=== PATIENT | female | born 1945 | race Caucasian/White ===

== ENCOUNTER 2022-02-26 13:52 | Emergency (ER) | payer MEDICARE, SELFPAY ==
[2022-02-26 13:57] VITALS: BP 108/45; PULSE 81; RESP 18; TEMP 36.4; O2SAT 94; BMI 39.7
[2022-02-26 14:00] VITALS: BP 122/59; PULSE 81; RESP 18; O2SAT 95
--- NOTE | 2022-02-26 14:29 | ED_ITS ---
HPI - General Adult General Chief complaint: Skin/Abscess/Foreign Body Stated complaint: Cellulitis Time Seen by Provider: 02/26/22 14:16 History of Present Illness HPI narrative: 77yo female patient with uncertain PMH, limited by patient knowledge and no records available for review, that presents to the ED after having been discharged from [facility] on 02/22 for bilateral LE cellulitis. The patient reports she was in her home and progressively weakening. Today, she lost her balance and fe ll onto her buttock. She denies hitting her head or having loss of consciousness. She denies blood thinners. In addition, the patient states that she has had poor PO intake. However, she denies fever, chills, or sweats. She denies nausea, vomiting, or abdominal pain. She reports 'routine' diarrhea with reported history of colitis. She reports worsening redness, swelling, and pain in her lower extremities. Prior to arrival, she reports taking Dilaudid which she states she is prescribed for chronic pain. She denies other evaluation or management prior to arrival. Related Data Home Medications Medication Instructions Recorded Confirmed budesonide 3 mg mg PO 02/26/22 capsule,delayed,extended release bupropion HCl 150 mg 24 hr tablet, mg PO 02/26/22 extended release buspirone 10 mg tablet mg 02/26/22 cephalexin 500 mg capsule mg 02/26/22 cetirizine 10 mg tablet mg 02/26/22 citalopram 40 mg tablet mg 02/26/22 colesevelam 625 mg tablet mg 02/26/22 cranberry fruit 450 mg tablet mg 02/26/22 (cranberry) gabapentin 300 mg capsule mg 02/26/22 hydroxyzine HCl 25 mg tablet mg 02/26/22 lisinopril 10 mg tablet mg 02/26/22 mirabegron 25 mg tablet,extended mg PO 02/26/22 release 24 hr (Myrbetriq) nystatin 100,000 unit/gram topical TOPICAL 02/26/22 powder pantoprazole 40 mg tablet,delayed mg PO 02/26/22 release ropinirole 1 mg tablet mg 02/26/22 trazodone 100 mg tablet mg 02/26/22 triamcinolone acetonide 0.1 % applic TOPICAL 02/26/22 topical cream Previous Rx's Medication Instructions Recorded sulfamethoxazole 800 1 tab PO BID #10 tab 02/26/22 mg-trimethoprim 160 mg tablet (Bactrim DS) Allergies Allergy/AdvReac Type Severity Reaction Status Date / Time No Known Drug Allergies Allergy Verified 02/26/22 14:02 Review of Systems Const: Reports: fatigue and malaise; Denies: fever or chills Cardio: Reports: swelling of feet/ankles, lightheadedness and leg pain with exertion; Denies: chest pain, palpitations or shortness of breath when lying down Resp: Denies: cough or pain on inspiration GI: Reports: diarrhea; Denies: abdominal pain, nausea, vomiting or blood in stool : Denies: painful urination, urinary frequency or urinary urgency Integ/Breast: Reports: redness; Denies: non-healing lesion Neuro: Reports: weakness in extremities and lack of coordination; Denies: numbness in extremities, dizziness, confusion or behavioral changes Psych: Reports: anxiety Endo: Reports: fatigue PFSH PFSH Social History Smoking Status: Unknown if ever smoked How often do you have a drink containing alcohol: never AUDIT-C Alcohol total score: 0 Non-prescribed substance use: denies use service: No Exam Const: Vital Signs, click to edit/add: Vital Signs - 24 hr 02/26/22 13:57 Temperature 97.5 F L Pulse Rate [Left P ulse Oximeter] 81 Respiratory Rate 18 Blood Pressure [Le ft Upper Arm] 108/45 L Pulse Oximetry 94 Documenting provider has reviewed patient's vital signs: yes (patient's blood pressure is taken at left forearm, per her request) Common normals: no apparent distress, oriented x3, no limitations, alert and well nourished General appearance: well developed, anxious and grossly edematous Nutritional appearance: obese Orientation/consciousness: Yes awake, Yes oriented to person, Yes oriented to place and Yes oriented to time HENMT: Common normals: normocephalic and hearing grossly normal bilaterally Head and scalp: normocephalic Eye: Common normals: PERRL and EOMs intact bilaterally Pupil: PERRL Neck & C-Spine: Common normals: full ROM, no lymphadenopathy and supple Cervical spine: cervical ROM normal; no cervical spine tenderness Lymph: Lymphatic: lymphedema (bilateral LE with +3 pitting edema) Resp: Common normals: normal respiratory effort, no retractions, no use of accessory muscles and clear to auscultation bilaterally Auscultation: clear to auscultation bilaterally Cardio: Common normals: regular rate, regular rhythm, S1 normal heart sound, S2 normal heart sound and no murmurs Rate: regular rate Rhythm: regular rhythm Heart sounds: S1 normal and S2 normal GI: Common normals: Normal to inspection, nondistended, normoactive bowel sounds present and soft to palpation Palpation: soft Back & Pelvis: Thoracic spine/upper back: pain with ROM (chronic) Lumbar spine/lower back: pain with ROM (chronic) Pelvis: no pain with anterior- posterior compression and no pain with lateral compression Extremity: General: edema (3+ pitting) and other findings (bilateral erythema, blanchable with palpation) Neuro: Common normals: oriented x3 and moves all extremities (with great effort, and causes pain with movement - baseline per patient) Sensorium/orientation: awake, alert, oriented to person, oriented to place and oriented to time Speech: speech normal Gait (neuro): unable to assess gait (due to patient reports of pain ) Sensory exam: sensation present Motor exam: strength 5/5 throughout, no pronator drift and tremor (with movement) Psych: Common normals: mental status grossly normal, thought process normal and speech normal Attitude: agitated (requesting pain medications on arrial) Activity/motor behavior: appropriate eye contact Speech: normal speech Thought process: normal thought process Thought content: normal thought content Insight: limited Judgement: limited Skin: Common normals: no rashes or lesions noted General skin exam: no rashes or lesions noted and erythema (bilateral, patieint reports right worse than previous; left improving) Course Course Hospital Course: 77yo female arrives after sustaining a fall at home secondary to progressive weakness after recent hospitalization for bilateral LE cellulitis. The patient reports increasing weakness and debility with worsening bilateral LE exam. The patient has been taking Keflex as previously prescribed and Dilaudid for pain medications. Her daughter reports that she has been having increasing loose bowel movements, the patient reports the bowel movements are about the same. The patient has not taken meds this am, as she fell upon awakening at 12-1pm. Reevaluation(s) Reevaluation #1: Patient reports improvement in pain after addition of Dilaudid and Gabapentin. The patient reports continued discomfort, but much improved. The patient's D- Dimer is noted to be elevated. The patient will be sent for CTA to ensure no PE. Reevaluation #2: Discussed findings and incidental results with patient and her daughter. Patient reports significant improvement in symptoms. Patient's vital signs have remained stable. The results were discussed, and the patient verbalized understanding. Reasons for follow-up or return were discussed. Time: 18:33 Vital Signs Vital signs: Initial Vital Signs Temperature 97.5 F L 02/26/22 13:57 Temperature Source Temporal Artery Scan 02/26/22 13:57 Pulse Rate 81 02/26/22 13:57 Respiratory Rate 18 02/26/22 13:57 Blood Pressure 108/45 L 02/26/22 13:57 Blood Pressure Mean 66 02/26/22 13:57 Blood Pressure Position Sitting 02/26/22 13:57 Pulse Oximetry 94 02/26/22 13:57 Oxygen Delivery Method 02/26/22 13:57 Vital Signs Temperature 97.5 F L 02/26/22 13:57 Pulse Rate 81 02/26/22 13:57 Respiratory Rate 18 02/26/22 13:57 Blood Pressure 108/45 L 02/26/22 13:57 Pulse Oximetry 94 02/26/22 13:57 Temperature 97.5 F L 02/26/22 13:57 Pulse Rate 81 02/26/22 13:57 Respiratory Rate 18 02/26/22 13:57 Blood Pressure 108/45 L 02/26/22 13:57 Pulse Oximetry 94 02/26/22 13:57 Medical Decision Making Lab Data Labs: Lab Results 02/26/22 02/26/22 02/26/22 Range/Units 14:26 14:45 14:45 WBC 10.96 (4.50-11.00) K/uL RBC 4.10 (4.00-5.20) m/uL Hgb 12.7 (12.0-16.0) gm/dL Hct 38.7 (33.0-51.0) % MCV 94 (80-100) fL MCH 31 (26-34) pg MCHC 33 (32-36) gm/dL RDW Coeff of Giulia 15.1 (11.5-15.5) % Plt Count 283 (140-440) K/uL Neut % (Auto) 71.7 (42.0-72.0) % Lymph % (Auto) 15.1 L (20-44) % Stevens % (Auto) 7.7 (0.0-11.0) % Eos % (Auto) 4.7 (0.0-7.0) % Baso % (Auto) 0.4 (0.0-3.0) % Neut # (Auto) 7.87 H (1.7-7.0) K/uL Lymph # (Auto) 1.70 (0.90-2.90) K/uL Stevens # (Auto) 0.80 (0.00-0.90) K/UL Eos # (Auto) 0.52 H (0.00-0.50) K/uL Baso # (Auto) 0.04 (0.00-0.30) K/uL Abs Immat Gran (auto) 0.04 (0.00-0.30) K/uL D-Dimer Quant (PE/DVT) 2.60 H (0.00-0.50) ug/ml Sodium (135-149) mmol/L Potassium (3.6-5.1) mmol/L Chloride (96-114) mmol/L Carbon Dioxide (20-32) mmol/L BUN (7-30) mg/dL Creatinine (0.5-1.5) mg/dL Estimated Creat Clear Estimated GFR ml/min Glucose (60-115) mg/dL Calcium (8.4-10.6) mg/dL Total Bilirubin (0.1-1.5) mg/dL AST (12-35) U/L ALT (4-35) U/L Alkaline Phosphatase (40-150) U/L NT-Pro-B Natriuret Pep (0-450) PG/mL Total Protein (6.0-8.3) g/dL Albumin (3.3-5.0) g/dL Procalcitonin (<0.50) ng/mL SARS-CoV-2 (PCR) Negative SARS-CoV-2 (Negative) Influenza Type A (PCR) Negative PCR FLU A (Negative) Influenza Type B (PCR) Negative PCR FLU B (Negative) 02/26/22 Range/Units 14:45 WBC (4.50-11.00) K/uL RBC (4.00-5.20) m/uL Hgb (12.0-16.0) gm/dL Hct (33.0-51.0) % MCV (80-100) fL MCH (26-34) pg MCHC (32-36) gm/dL RDW Coeff of Giulia (11.5-15.5) % Plt Count (140-440) K/uL Neut % (Auto) (42.0-72.0) % Lymph % (Auto) (20-44) % Stevens % (Auto) (0.0-11.0) % Eos % (Auto) (0.0-7.0) % Baso % (Auto) (0.0-3.0) % Neut # (Auto) (1.7-7.0) K/uL Lymph # (Auto) (0.90-2.90) K/uL Stevens # (Auto) (0.00-0.90) K/UL Eos # (Auto) (0.00-0.50) K/uL Baso # (Auto) (0.00-0.30) K/uL Abs Immat Gran (auto) (0.00-0.30) K/uL D-Dimer Quant (PE/DVT) (0.00-0.50) ug/ml Sodium 135 (135-149) mmol/L Potassium 4.5 (3.6-5.1) mmol/L Chloride 107 (96-114) mmol/L Carbon Dioxide 27 (20-32) mmol/L BUN 17 (7-30) mg/dL Creatinine 1.2 (0.5-1.5) mg/dL Estimated Creat Clear 30.57 Estimated GFR 47 ml/min Glucose 86 (60-115) mg/dL Calcium 9.1 (8.4-10.6) mg/dL Total Bilirubin 0.7 (0.1-1.5) mg/dL AST 21 (12-35) U/L ALT 20 (4-35) U/L Alkaline Phosphatase 79 (40-150) U/L NT-Pro-B Natriuret Pep 109 (0-450) PG/mL Total Protein 6.8 (6.0-8.3) g/dL Albumin 3.8 (3.3-5.0) g/dL Procalcitonin 0.06 (<0.50) ng/mL SARS-CoV-2 (PCR) (Negative) Influenza Type A (PCR) (Negative) Influenza Type B (PCR) (Negative) Imaging Data XR Pelvis: Attestation: I have reviewed the pertinent imaging results. Radiologist's impression: Joint spaces: Severe degenerative changes at the left femoral acetabular joint with near-complete loss of the joint space. Increased productive changes and sclerosis along the left femoral head and acetabulum.. Mild degenerative changes in the right hip. Soft tissues: Unremarkable. 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 ECG Data Attestation: I personally reviewed and interpreted this ECG as follows: (NSR, [id number]; Nml axis; Nml intervals; No significant ST-Twave changes.) Prior ECG tracings: not available for review Discharge Plan Discharge Clinical Impression: Thyroid nodule, Incidental pulmonary nodule Cellulitis Qualifiers: Site of cellulitis: extremity Site of cellulitis of extremity: lower extremity Laterality: unspecified laterality Qualified Code(s): L03.119 - Cellulitis of unspecified part of limb Patient Disposition: Home, Self-Care Condition: Improved Instructions: Cellulitis (ED) Additional Instructions: Thank you for choosing [facility] for your care today. Take antibiotics as directed. Take NSAID of choice - Advil, Aleve, Motrin, or substitute - scheduled per package directions with food for 72hrs. Take pain medication as prescribed. Use RICE - rest, ice, compression, and elevation - as needed for symptom control. I recommend following up with your primary physician in 1-2wks if a significant improvement of symptoms is not noted. Continue routine activity as tolerated. If new or worsening symptoms develop or you have any concerns in the meantime, please call your primary care clinic or return to the ER for re-evaluation. Activity Level: Up with assist and Use Walker Discharge Diet: Heart Healthy (2 gm sodium, low fat) Prescriptions: New sulfamethoxazole-trimethoprim [Bactrim DS] 800-160 mg tablet 1 tab PO BID Qty: 10 0RF No Action ropinirole 1 mg tablet 0RF Label Comments: TAKE ONE TABLET BY MOUTH AT BEDTIME citalopram 40 mg tablet 0RF Label Comments: TAKE ONE TABLET BY MOUTH EVERY DAY cetirizine 10 mg tablet 0RF Label Comments: 1 tablet by mouth once a day triamcinolone acetonide 0.1 % cream TOPICAL 0RF Label Comments: APPLY TO AFFECTED AREA(S) ON RIGHT LEG TOPICALLY TWICE DAILY trazodone 100 mg tablet 0RF Label Comments: TAKE ONE TABLET BY MOUTH AT BEDTIME ALONG WITH THE 50MG TABLET FOR A TOTAL DOSE OF 150MG colesevelam 625 mg tablet 0RF Label Comments: TAKE UP TO 6 TABLETS PER DAY NEEDED FOR COLITIS FLARES cephalexin 500 mg capsule 0RF pantoprazole 40 mg tablet,delayed release (DR/EC) PO 0RF Label Comments: TAKE ONE TABLET BY MOUTH EVERY DAY buspirone 10 mg tablet 0RF Label Comments: TAKE ONE TABLET BY MOUTH THREE TIMES A DAY lisinopril 10 mg tablet 0RF Label Comments: TAKE ONE TABLET BY MOUTH EVERY DAY gabapentin 300 mg capsule 0RF Label Comments: TAKE TWO CAPS BY MOUTH EVERY DAY IN THE MORNING, TWO CAPSS EVERY DAY AFTERNOON AND THREE CAPS AT BEDTIME hydroxyzine HCl 25 mg tablet 0RF Label Comments: TAKE ONE TO TWO TABLETS BY MOUTH EVERY 6 HOURS NEEDED FOR ITCHING nystatin 100,000 unit/gram powder TOPICAL 0RF Label Comments: APPLY ONE STRIP TOPICALLY TO AFFECTED AREA(S) TWO TIMES A DAY NEEDED budesonide 3 mg capsule,delayed,extend.release PO 0RF Label Comments: TAKE 3 CAPSULES BY MOUTH IN THE MORNING MAY TAKE ONE ADDITIONAL CAPSULE PER DAY NEEDED FOR SYMPTOM FLARE-UP bupropion HCl 150 mg tablet extended release 24 hr PO 0RF Label Comments: TAKE ONE TABLET BY MOUTH EVERY MORNING cranberry 450 mg tablet 0RF Label Comments: 1 tablet by mouth twice a day Myrbetriq 25 mg tablet extended release 24 hr PO 0RF Label Comments: TAKE ONE TABLET BY MOUTH EVERY DAY Follow Up/Referrals: Provider,Not a Local [Primary Care Provider] - Stand Alone Forms: [facility] Info Instructions
[2022-02-26] MEDS: ACETAMINOPHEN 500 MG TABLET 1000 MG PO (14:59)
[2022-02-26 15:00] VITALS: BP 113/56; PULSE 70; RESP 18; O2SAT 96
[2022-02-26] MEDS: KETOROLAC 30 MG/ML inj IVP (15:00)
[2022-02-26 15:03] LABS: Basophils Absolute Auto 0.04 K/uL (0.00-0.30); Basophils Percent Auto 0.4 % (0.0-3.0); Eosinophils Absolute Auto 0.52 K/uL (0.00-0.50); Eosinophils Percent Auto 4.7 % (0.0-7.0); Hematocrit 38.7 % (33.0-51.0); Hemoglobin* 12.7 gm/dL (12.0-16.0); Immature Granulocytes Abs Auto 0.04 K/uL (0.00-0.30); Lymphocytes Percent Auto 15.1 % (20-44); Mean Corpuscular HGB Conc 33 gm/dL (32-36); Mean Corpuscular Hemoglobin 31 pg (26-34); Mean Corpuscular Volume 94 fL (80-100); Monocytes Percent Auto 7.7 % (0.0-11.0); Neutrophils Absolute Auto 7.87 K/uL (1.7-7.0); Neutrophils Percent Auto 71.7 % (42.0-72.0); Platelet Count* 283 K/uL (140-440); RDW Coefficient of Variation % 15.1 % (11.5-15.5); White Blood Count* 10.96 K/uL (4.50-11.00)
[2022-02-26 15:17] LABS: Slide Review Reflex No
[2022-02-26 15:18] LABS: Albumin* 3.8 g/dL (3.3-5.0); Chloride* 107 mmol/L (96-114); Potassium* 4.5 mmol/L (3.6-5.1); Sodium* 135 mmol/L (135-149)
[2022-02-26 15:20] LABS: Aspartate Amino Transferase* 21 U/L (12-35); Bilirubin Total* 0.7 mg/dL (0.1-1.5); Carbon Dioxide* 27 mmol/L (20-32); Creatinine* 1.2 mg/dL (0.5-1.5); Est. Creatinine Clearance* 30.57; Estimated Glomerular Filt Rate 47 ml/min; Total Protein* 6.8 g/dL (6.0-8.3)
[2022-02-26 15:21] LABS: Alanine Aminotransferase* 20 U/L (4-35); Alkaline Phosphatase* 79 U/L (40-150); Blood Urea Nitrogen* 17 mg/dL (7-30); Calcium* 9.1 mg/dL (8.4-10.6); Glucose* 86 mg/dL (60-115)
[2022-02-26 15:30] LABS: NT Pro B Type NatriureticPept* 109 PG/mL (0-450)
--- NOTE | 2022-02-26 15:34 | CRLHL7_ITS ---
For Patients: As a result of the Century Cures Act, medical imaging exams and procedure reports are released immediately into your electronic medical record. You may view this report before your referring provider. If you have questions, please contact your health care provider. Indication: Hip pain. Technique: Pelvis and bilateral hip 3 view. Comparison: None. Findings: Bones: Alignment is normal. No fractures or bone lesions. Joint spaces: Severe degenerative changes at the left femoral acetabular joint with near-complete loss of the joint space. Increased productive changes and sclerosis along the left femoral head and acetabulum.. Mild degenerative changes in the right hip. Soft tissues: Unremarkable. 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 Dictated by Elenita Leija MD @ 02/26/2022 5:09:06 PM (Electronically Signed)
[2022-02-26 15:38] LABS: Procalcitonin* 0.06 ng/mL (<0.50)
[2022-02-26] MEDS: HYDROmorphone 2 MG TABLET 4 MG PO (15:54)
[2022-02-26 16:00] VITALS: BP 102/61; PULSE 74; RESP 18; O2SAT 94
[2022-02-26] MEDS: GABAPENTIN 600 MG TABLET PO (16:22)
--- NOTE | 2022-02-26 16:27 | PC.NURSE ---
pt back from imaging, pain is improved
--- NOTE | 2022-02-26 16:33 | CRLHL7_ITS ---
For Patients: As a result of the Century Cures Act, medical imaging exams and procedure reports are released immediately into your electronic medical record. You may view this report before your referring provider. If you have questions, please contact your health care provider. INDICATION: Fall, elevated D-dimer recent hospitalization TECHNIQUE: CT chest PE was acquired with 95 cc Isovue 370 IV contrast. COMPARISON: None. FINDINGS: Heart and vasculature: Contrast opacification of the pulmonary arterial tree is adequate. No sign of pulmonary embolism. Heart size is normal. Thoracic aorta and pulmonary artery are normal in caliber. Coronary artery calcifications. Lungs and pleura: Upper lung predominant emphysema. Osteophyte related fibrosis in the medial right lower lobe. 3 mm nodule in the right upper lobe (series 4, image 54). No pleural effusions, pleural thickening, or pneumothorax. Lymph nodes/mediastinum: No mediastinal, hilar, or axillary adenopathy. Enlarged thyroid gland with multiple bilateral nodules measuring up to 2.8 cm. Small hiatal hernia. Chest wall: No masses. Upper abdomen: Sequela prior healed granulomatous disease. Status post cholecystectomy. 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 Severe right shoulder degenerative changes. Thoracic spine degenerative changes with exaggerated thoracic kyphosis. IMPRESSION: 1. No evidence of pulmonary embolism. 2. No acute intrathoracic abnormality. 3. 3 mm right upper lobe pulmonary nodule. Current guidelines recommend optional follow-up chest CT in 12 months for re-evaluation. 4. Enlarged thyroid gland with multiple bilateral nodules measuring up to 2.8 cm. Current guidelines recommend nonemergent dedicated thyroid ultrasound evaluation. Please note that all CT scans at this facility use dose modulation, iterative reconstruction, and/or weight-based dosing when appropriate to reduce radiation dose to as low as reasonably achievable. Dictated by Miguel Almazan MD @ 02/26/2022 6:13:58 PM (Electronically Signed)
[2022-02-26 16:46] LABS: SARS PCR* Negative SARS-CoV-2 (Negative)
[2022-02-26 17:11] LABS: PCR FLU A Negative PCR FLU A (Negative); PCR FLU B Negative PCR FLU B (Negative)
== END 2022-02-26 19:13 | disposition home or self-care (01) ==
PROVIDERS: Emergency Provider Family Medicine
DX: L03.116 Cellulitis of left lower limb (principal); L03.115 Cellulitis of right lower limb; E04.1 Nontoxic single thyroid nodule
CPT/HCPCS: 36415; 71260; 73521; 80053; 80306; 83880; 84145; 85025; 85379; 87040; 87045; 87046; 87427; 87493; 87502; 87635; 93005; 96374; 96375; 99284; 99285; A9270; J1885; Q9967

== ENCOUNTER 2022-09-04 23:32 | Outpatient (CLI) | payer MEDICARE, SELFPAY | END 2022-09-04 23:33 | disposition home or self-care (01) | PROVIDERS: Visit Provider Family Medicine | DX: M25.571 Pain in right ankle and joints of right foot (principal); R53.1 Weakness | CPT/HCPCS: A0425; A0433 ==